=== PATIENT | male | born 1955 | race African-American/Black ===

== ENCOUNTER 2023-08-06 09:03 | Day surgery (SDC) | payer OTHER ==
[2023-08-06 09:08] LABS: Absolute Lymphocytes (CBC) 1.6 K/uL (0.7-4.9); Hematocrit 40.2 % (39.6-49.0); Lymphocytes % 21.5 % (15.3-44.8); MCV 89.5 fL (80-100); MPV 7.4 fL (7.6-11.3); Platelets 294 thou/uL (152-406)
[2023-08-06 09:21] LABS: Potassium 3.5 mEq/L (3.5-5.1)
[2023-08-06] MEDS: NA CHLORIDE 0.9% 1,000 ML ONE (10:59)
[2023-08-06] MEDS ORDERED: LIDOCAINE 1% MPF 5 ML VIAL ONE (12:06)
[2023-08-06] MEDS ORDERED: propofoL 200 MG/20 ML VIAL IV ONE (12:06)
[2023-08-06 14:42] VITALS: BP 146/86; TEMP 97.3; O2SAT 100
--- NOTE | 2023-08-06 16:05 | EKG ---
Test Date: 2023-08-06 Test Time: 09:55:39 Manager Statistical Programming: LASHELL MEASUREMENT RESULTS: Intervals: Rate: 78 MO: 180 QRSD: 90 QT: 408 QTc: 465 [place]: P: 57 MO: 180 QRS: 39 T: 0 INTERPRETIVE STATEMENTS: Normal sinus rhythm Inferior infarct, age undetermined Cannot rule out Anterior infarct, age undetermined Abnormal ECG No previous ECG available for comparison Electronically Signed On 08-06-23 16:04:16 [employer] by Prakash Chou
== END 2023-08-06 14:20 | disposition home or self-care (01) ==
LOC: OR 09:03
PROVIDERS: ATTEND Surgery
PROC: 0DBN8ZX Excision of Sigmoid Colon, Via Natural or Artificial Opening Endoscopic, Diagnostic (ICD-10-PCS; principal; 2023-08-06 12:00)
DX: Z12.11 Encounter for screening for malignant neoplasm of colon (principal); K63.5 Polyp of colon; K64.8 Other hemorrhoids; I10 Essential (primary) hypertension; E11.9 Type 2 diabetes mellitus without complications; E78.00 Pure hypercholesterolemia, unspecified; N40.0 Benign prostatic hyperplasia without lower urinary tract symptoms; M19.90 Unspecified osteoarthritis, unspecified site; Z79.84 Long term (current) use of oral hypoglycemic drugs; Z79.899 Other long term (current) drug therapy
CPT/HCPCS: 45385; 93005; 85025; 80048; 36415; 88305; J2704; J2001; J7030; 88304